=== PATIENT | male | born 1955 | race Caucasian/White ===

== ENCOUNTER 2016-07-27 13:43 | Emergency (ER) | payer OTHER ==
[2016-07-27] MEDS ORDERED: Sodium Chloride 0.9% 1,000 ML IV ONE ×2 (14:25→15:29)
[2016-07-27] MEDS ORDERED: Sodium Chloride 0.9% 2.5 ML Syringe FLUSH PRN (14:25)
[2016-07-27] MEDS ORDERED: Sodium Chloride 0.9% 10 ML Syringe FLUSH PRN (14:25)
[2016-07-27] MEDS ORDERED: Ketorolac 30 MG/ML SDV IVPUSH ONE (14:25)
--- NOTE | 2016-07-27 14:41 | EDM.PDOC ---
ED HPI GENERAL MEDICAL PROBLEM - General Chief Complaint: Gastrointestinal Problem Stated Complaint: BOWLOBSTRUCTION Time Seen by Provider: 07/27/16 14:08 - History of Present Illness INITIAL COMMENTS - FREE TEXT/NARRATIVE: HISTORY AND PHYSICAL: History of present illness: The patient is a 61-year-old male who follows at [facility] and has a history of asthma GERD and an appendectomy 2 years ago here ,who has since that time been admitted to a hospital in [place] in December of 2015 for small bowel obstruction. On that admission he spent 6 days in the hospital on bowel rest and it was determined that his bowel obstruction had a transition point in the right lower quadrant likely secondary to scar tissue where his appendectomy was. They did not have to operate aa he opened up with the bowel rest and some laxatives/enemas. The patient states he has been doing relatively well since that time and on Tuesday, 2 days ago he started having lower abdominal pain and cramping and he did not have a normal bowel movement on Tuesday or yesterday. Patient states he had only small flakes and a small amount of stool on those 2 days and he tried laxatives but did not get much output. He also states over the last 2 days he has not had much of an appetite and has not been eating and drinking his normal amount. He completely normally on Tuesday. He has had no documented fevers no chest pain or shortness of breath no urinary issues and no flank pain. The patient states the pain seems to be more localized in the right lower quadrant as it was on the last bowel obstruction but he overall feels bloated and gassy. He has been passing gas per rectum. The patient denies nausea and vomiting with these other symptoms above Review of systems: As per history of present illness and below otherwise all systems reviewed and negative. Past medical history: As per history of present illness and as reviewed below otherwise noncontributory. Surgical history: As per history of present illness and as reviewed below otherwise noncontributory. Social history: No reported history of drug or alcohol abuse. Family history: As per history of present illness and as reviewed below otherwise noncontributory. Physical exam: General: Well-developed slight man who is nontoxic and speaking clearly and easily in the ED. Vital signs of been reviewed by me. He moves in the ED without distress. HEENT: Atraumatic, normocephalic, negative for conjunctival pallor or scleral icterus, mucous membranes tacky, throat clear, neck supple, nontender, trachea midline. Lungs: Clear to auscultation, breath sounds equal bilaterally, chest nontender. Heart: S1S2, regular, negative for clicks, rubs, or JVD. Abdomen: Soft, nondistended, there is tympany on percussion more localized to the right side of the abdomen and there is no rebound or guarding on exam. He does have tenderness more on the right lower and right mid abdominal areas. Negative for masses or hepatosplenomegaly. Negative for costovertebral tenderness. Pelvis: Stable nontender. Genitourinary: Deferred. Rectal: Deferred. Extremities: Atraumatic, negative for cords or calf pain. Neurovascular unremarkable. Neuro: Awake, alert, oriented. Cranial nerves II through XII unremarkable. Cerebellum unremarkable. Motor and sensory unremarkable throughout. Exam nonfocal. Diagnostics: CBC CMP lactic acid UA CT scan of the abdomen and pelvis Therapeutics: IV fluids Toradol Flagyl Cipro Patient prefers to be given nonnarcotic medications 1605: I. discussed this case with Dr. Nash our hospitalist. As the patient is currently having no abdominal pain and feels much improved he feels that a trial of antibiotics for the focal colitis with Bentyl for home would be a good option if the patient is agreeable. I have discussed the CT scan and lab findings with the patient and offered him both observation admission or outpatient treatment and he would prefer outpatient treatment. I will give a dose of Flagyl and Cipro here and give him Flagyl and Cipro as well as Bentyl for home. I've advised him for follow up with his provider and reasons to return to the ER. Impression: Right lower abdominal pain, focal colitis stable Definitive disposition and diagnosis as appropriate pending reevaluation and review of above. Right Lower Abdominal Pain Score (Numeric/FACES): 8 - Related Data Allergies Allergy/AdvReac Type Severity Reaction Status Date / Time No Known Allergies Allergy Verified 07/27/16 14:06 Home Meds: Home Meds Albuterol Sulfate [Albuterol Sulfate HFA] 1 - 2 inh INH DAILY PRN 07/28/14 [ History] Fluticasone/Vilanterol [Breo Ellipta 100-25 MCG Inhalation Kit] 1 each IH DAILY 12/26/15 [History] Brimonidine Tartrate [Brimonidine Tartrate 0.2% Ophth Soln] 2 drop EYEBOTH BID 07/27/16 [History] Latanoprost 1 drop EYEBOTH DAILY 07/27/16 [History] Past Medical History - Past Health History Medical/Surgical History: Denies Medical/Surgical History HEENT History: Reports: Glaucoma Other HEENT History: hx: fractured cheek bone on Right as young boy Other Cardiovascular History: History of Innocent heart murmur as child, they report they do not hear it-patient states that this has resolved. Respiratory History: Reports: Asthma, COPD Other Respiratory History: 44 yr history of smoking, trying to QUIT, current use 1/2 pack/day Gastrointestinal History: Reports: Bowel Obstruction, GERD Other Gastrointestinal History: Take TUMS daily, when does not cure it add OTC Zantac and then 3rd level is OTC Prilosec Genitourinary History: Reports: None Musculoskeletal History: Reports: Back Pain, Chronic Other Musculoskeletal History: hx: several fractures just set and healed, but significant to Left wrist and arm ORIF with hardware remaining, hx: fractures to Left foot, chronic low back pain "several ruptured discs" Neurological History: Reports: None Other Endocrine/Metabolic History: Have high metabolism hard to keep weight on, eat carbs and protein Other Oncologic History: Pre-cancers some basal cell Other Dermatologic History: Fair complected, "have had pre-cancerous things removed couple basal cell, been in sun alot through the years have always worked outside" - Infectious Disease History Infectious Disease History: Reports: Chicken Pox, Measles, Mumps - Past Surgical History GI Surgical History: Reports: Appendectomy Social & Family History - Family History Family Medical History: Noncontributory - Tobacco Use Smoking Status *Q: Current Every Day Smoker Years of Tobacco use: 46 Packs/Tins Daily: 0.7 Used Tobacco, but Quit: No Second Hand Smoke Exposure: Yes - Caffeine Use Caffeine Use: Reports: None - Alcohol Use Days Per Week of Alcohol Use: 0 Number of Drinks Per Day: 1 Total Drinks Per Week: 0 - Recreational Drug Use Recreational Drug Use: No Drug Use in Last 12 Months: No ED ROS GENERAL - Review of Systems Review Of Systems: ROS reveals no pertinent complaints other than HPI. ED EXAM, GENERAL - Physical Exam Exam: See Below (See dictation) Course - Vital Signs Last Recorded V/S: Last Vital Signs Temp 36.6 C 07/27/16 14:03 Pulse 92 07/27/16 14:03 Resp 16 07/27/16 14:03 BP 101/73 07/27/16 14:03 Pulse Ox 97 07/27/16 14:03 - Orders/Labs/Meds Orders: Active Orders 24 hr Category Date Time Status Ciprofloxacin [Ciprofloxacin HCl] Med 07/27/16 16:23 Once 500 mg PO ONETIME ONE Sodium Chloride 0.9% [Normal Saline] 1,000 ml Med 07/27/16 15:29 Active IV STAT Sodium Chloride 0.9% [Saline Flush] Med 07/27/16 14:25 Active 10 ml FLUSH ASDIRECTED PRN Sodium Chloride 0.9% [Saline Flush] Med 07/27/16 14:25 Active 2.5 ml FLUSH ASDIRECTED PRN metroNIDAZOLE/Normal Saline [Flagyl 500 MG in NS 100 ML Med 07/27/16 16:23 Ordered ] 500 mg Premix Bag 1 bag IV ONETIME Saline Lock Insert [OM.PC] Stat Oth 07/27/16 14:24 Ordered Medication Orders Sodium Chloride (Normal Saline) 1,000 mls @ 999 mls/hr IV STAT ONE Stop: 07/27/16 16:29 Last Admin: 07/27/16 15:43 Dose: 999 mls/hr Sodium Chloride (Saline Flush) 10 ml FLUSH ASDIRECTED PRN PRN Reason: Keep Vein Open Last Admin: 07/27/16 14:35 Dose: 10 ml Sodium Chloride (Saline Flush) 2.5 ml FLUSH ASDIRECTED PRN PRN Reason: Keep Vein Open Last Admin: 07/27/16 14:35 Dose: 2.5 ml Labs: Laboratory Tests 07/27/16 07/27/16 07/27/16 Range/Units 14:29 14:29 14:29 WBC 13.59 H (4.0-11.0) K/uL RBC 4.60 (4.50-5.90) M/uL Hgb 15.7 (13.0-17.0) g/dL Hct 45.9 (38.0-50.0) % MCV 99.8 H (80.0-98.0) fL MCH 34.1 H (27.0-32.0) pg MCHC 34.2 (31.0-37.0) g/dL RDW Std Deviation 50.0 (28.0-62.0) fl RDW Coeff of Alyssa 14 (11.0-15.0) % Plt Count 171 (150-400) K/uL MPV 9.60 (7.40-12.00) fL Neut % (Auto) 76.7 (48.0-80.0) % Lymph % (Auto) 12.7 L (16.0-40.0) % [place] % (Auto) 10.2 (0.0-15.0) % Eos % (Auto) 0.3 (0.0-7.0) % Baso % (Auto) 0.1 (0.0-1.5) % Neut # (Auto) 10.4 H (1.4-5.7) K/uL Lymph # (Auto) 1.7 (0.6-2.4) K/uL [place] # (Auto) 1.4 H (0.0-0.8) K/uL Eos # (Auto) 0.0 (0.0-0.7) K/uL Baso # (Auto) 0.0 (0.0-0.1) K/uL Nucleated RBC % 0.0 /100WBC Nucleated RBCs # 0 K/uL Lactate 0.9 (0.20-2.00) mmol/L Sodium 137 (136-146) mmol/L Potassium 4.0 (3.5-5.1) mmol/L Chloride 103 (98-110) mmol/L Carbon Dioxide 20 L (21-31) mmol/L BUN 19 (6.0-23.0) mg/dL Creatinine 0.9 (0.6-1.5) mg/dL Est Cr Clr Drug Dosing 70.75 mL/min Estimated GFR (MDRD) > 60.0 ml/min Glucose 68 (60-110) mg/dL Calcium 9.5 (8.8-10.8) mg/dL Total Bilirubin 0.9 (0.1-1.5) mg/dL AST 12 (5-40) IU/L ALT 11 (8-54) IU/L Alkaline Phosphatase 80 (40-150) Total Protein 7.3 (6.0-8.0) g/dL Albumin 4.4 (3.5-5.0) g/dL Globulin 2.9 (2.0-3.5) g/dL Albumin/Globulin Ratio 1.5 (1.3-2.8) Urine Color Urine Appearance Urine pH (5.0-8.0) Ur Specific [place] (1.001-1.035) Urine Protein (NEGATIVE) mg/dL Urine Glucose (UA) (NEGATIVE) mg/dL Urine Ketones (NEGATIVE) mg/dL Urine Occult Blood (NEGATIVE) Urine Nitrite (NEGATIVE) Urine Bilirubin (NEGATIVE) Urine Ictotest Urine Urobilinogen (<2.0) EU/dL Ur Leukocyte Esterase (NEGATIVE) Urine RBC (0-2/HPF) Urine WBC (0-5/HPF) Ur Epithelial Cells (NONE-FEW) Urine Bacteria (NEGATIVE) Urine Mucus (NONE-MOD) 07/27/16 Range/Units 15:00 WBC (4.0-11.0) K/uL RBC (4.50-5.90) M/uL Hgb (13.0-17.0) g/dL Hct (38.0-50.0) % MCV (80.0-98.0) fL MCH (27.0-32.0) pg MCHC (31.0-37.0) g/dL RDW Std Deviation (28.0-62.0) fl RDW Coeff of Alyssa (11.0-15.0) % Plt Count (150-400) K/uL MPV (7.40-12.00) fL Neut % (Auto) (48.0-80.0) % Lymph % (Auto) (16.0-40.0) % [place] % (Auto) (0.0-15.0) % Eos % (Auto) (0.0-7.0) % Baso % (Auto) (0.0-1.5) % Neut # (Auto) (1.4-5.7) K/uL Lymph # (Auto) (0.6-2.4) K/uL [place] # (Auto) (0.0-0.8) K/uL Eos # (Auto) (0.0-0.7) K/uL Baso # (Auto) (0.0-0.1) K/uL Nucleated RBC % /100WBC Nucleated RBCs # K/uL Lactate (0.20-2.00) mmol/L Sodium (136-146) mmol/L Potassium (3.5-5.1) mmol/L Chloride (98-110) mmol/L Carbon Dioxide (21-31) mmol/L BUN (6.0-23.0) mg/dL Creatinine (0.6-1.5) mg/dL Est Cr Clr Drug Dosing mL/min Estimated GFR (MDRD) ml/min Glucose (60-110) mg/dL Calcium (8.8-10.8) mg/dL Total Bilirubin (0.1-1.5) mg/dL AST (5-40) IU/L ALT (8-54) IU/L Alkaline Phosphatase (40-150) Total Protein (6.0-8.0) g/dL Albumin (3.5-5.0) g/dL Globulin (2.0-3.5) g/dL Albumin/Globulin Ratio (1.3-2.8) Urine Color YELLOW Urine Appearance CLEAR Urine pH 5.5 (5.0-8.0) Ur Specific [place] >= 1.030 (1.001-1.035) Urine Protein TRACE (NEGATIVE) mg/dL Urine Glucose (UA) NEGATIVE (NEGATIVE) mg/dL Urine Ketones >=80 (NEGATIVE) mg/dL Urine Occult Blood TRACE-INTACT (NEGATIVE) Urine Nitrite NEGATIVE (NEGATIVE) Urine Bilirubin MODERATE H (NEGATIVE) Urine Ictotest NEGATIVE Urine Urobilinogen 1.0 (<2.0) EU/dL Ur Leukocyte Esterase NEGATIVE (NEGATIVE) Urine RBC 1-2 (0-2/HPF) Urine WBC 0-2 (0-5/HPF) Ur Epithelial Cells RARE (NONE-FEW) Urine Bacteria FEW (NEGATIVE) Urine Mucus MANY (NONE-MOD) Meds: Medications Generic Name Dose Route Start Last Admin Trade Name Freq PRN Reason Stop Dose Admin Sodium Chloride 1,000 mls @ 999 mls/hr 07/27/16 15:29 07/27/16 15:43 Normal Saline IV 07/27/16 16:29 999 mls/hr STAT ONE Administration Sodium Chloride 10 ml 07/27/16 14:25 07/27/16 14:35 Saline Flush FLUSH 10 ml ASDIRECTED PRN Administration Keep Vein Open Sodium Chloride 2.5 ml 07/27/16 14:25 07/27/16 14:35 Saline Flush FLUSH 2.5 ml ASDIRECTED PRN Administration Keep Vein Open Discontinued Medications Generic Name Dose Route Start Last Admin Trade Name Do PRN Reason Stop Dose Admin Sodium Chloride 1,000 mls @ 999 mls/hr 07/27/16 14:25 07/27/16 14:35 Normal Saline IV 07/27/16 15:25 999 mls/hr STAT ONE Administration Iopamidol 100 ml 07/27/16 15:22 07/27/16 15:23 Isovue Multipack-370 (76%) IVPUSH 07/27/16 15:23 100 ml ONETIME STA Administration Ketorolac Tromethamine 30 mg 07/27/16 14:25 07/27/16 14:58 Toradol IVPUSH 07/27/16 14:26 30 mg ONETIME ONE Administration Departure - Departure Time of Disposition: 16:26 Disposition: Home, Self-Care 01 Condition: good Clinical Impression: Colitis Abdominal pain Qualifiers: Abdominal location: right lower quadrant Qualified Code(s): R10.31 - Right lower quadrant pain - Discharge Information Forms: ED Department Discharge Additional Instructions: The following information is given to patients seen in the emergency department who are being discharged to home. This information is to outline your options for follow-up care. We provide all patients seen in our emergency department with a follow-up referral. The need for follow-up, as well as the timing and circumstances, are variable depending upon the specifics of your emergency department visit. If you don't have a primary care physician on staff, we will provide you with a referral. We always advise you to contact your personal physician following an emergency department visit to inform them of the circumstance of the visit and for follow-up with them and/or the need for any referrals to a consulting specialist. The emergency department will also refer you to a specialist when appropriate. This referral assures that you have the opportunity for followup care with a specialist. All of these measure are taken in an effort to provide you with optimal care, which includes your followup. Under all circumstances we always encourage you to contact your private physician who remains a resource for coordinating your care. When calling for followup care, please make the office aware that this follow-up is from your recent emergency room visit. If for any reason you are refused follow-up, please contact the [facility] emergency department at and ask to speak to the emergency department charge nurse. [facility] Primary care- Internal Medicine and Family [facility] [address] [place] [address] [place] [address] Please follow up with her provider at [facility] or one of our providers in one to 2 days. Take all medications as prescribed and push hydration and bland diet. Return to ER as needed and as discussed - My Orders Last 24 Hours: My Active Orders 07/27/16 14:24 Saline Lock Insert [OM.PC] Stat 07/27/16 14:25 Sodium Chloride 0.9% [Saline Flush] 10 ml FLUSH ASDIRECTED PRN Sodium Chloride 0.9% [Saline Flush] 2.5 ml FLUSH ASDIRECTED PRN 07/27/16 15:29 Sodium Chloride 0.9% [Normal Saline] 1,000 ml IV STAT 07/27/16 16:23 Ciprofloxacin [Ciprofloxacin HCl] 500 mg PO ONETIME ONE metroNIDAZOLE/Normal Saline [Flagyl 500 MG in NS 100 ML] 500 mg Premix Bag 1 bag IV ONETIME - Assessment/Plan Last 24 Hours: My Active Orders 07/27/16 14:24 Saline Lock Insert [OM.PC] Stat 07/27/16 14:25 Sodium Chloride 0.9% [Saline Flush] 10 ml FLUSH ASDIRECTED PRN Sodium Chloride 0.9% [Saline Flush] 2.5 ml FLUSH ASDIRECTED PRN 07/27/16 15:29 Sodium Chloride 0.9% [Normal Saline] 1,000 ml IV STAT 07/27/16 16:23 Ciprofloxacin [Ciprofloxacin HCl] 500 mg PO ONETIME ONE metroNIDAZOLE/Normal Saline [Flagyl 500 MG in NS 100 ML] 500 mg Premix Bag 1 bag IV ONETIME
[2016-07-27 14:58] LABS: CHLORIDE,CL 103 mmol/L (98-110); SODIUM,NA 137 mmol/L (136-146)
[2016-07-27] MEDS ORDERED: Iopamidol 755 MG/ML 500 ML Multipack Bottle IVPUSH STA (15:22)
--- NOTE | 2016-07-27 15:46 | CT ---
CT of the abdomen and pelvis with contrast. HISTORY: Pain TECHNIQUE: Axial CT images were obtained of the abdomen and pelvis following administration of 100 m L of Isovue-370 in the left antecubital fossa without complication. Coronal and sagittal reconstruct ions obtained. FINDINGS: The lung bases are clear without focal consolidation. Emphysematous changes are noted. The liver, spleen, adrenal glands, and pancreas appear normal. The gallbladder is normal. There is n o bulky retroperitoneal lymphadenopathy or abdominal ascites. The kidneys enhance and function symme trically without evidence of obstructive uropathy. The large and small bowel are normal in caliber without evidence of obstruction. There is moderate p ericecal inflammation of uncertain etiology. The patient has a history of appendectomy and the appen lan is not identified. There is a small amount of free pelvic fluid also noted. The urinary bladder appears normal. The prostate is mildly prominent. No bulky pelvic lymphadenopathy. No suspicious osseous abnormalities identified. IMPRESSION: 1. Moderate pericecal inflammation and fluid of uncertain etiology. This could represent focal colit is. The patient is status post appendectomy by history. 2. Pulmonary emphysema.
[2016-07-27] MEDS ORDERED: metroNIDAZOLE/Normal Saline 500 MG in Premix Bag 1 BAG IV ONE (16:23)
[2016-07-27] MEDS ORDERED: Ciprofloxacin 500 MG Tab PO ONE (16:23)
[2016-07-27 17:30] VITALS: BP 98/66
== END 2016-07-27 17:48 | disposition home or self-care (01) ==
LOC: MW.ED 13:43
DX: K52.9 Noninfective gastroenteritis and colitis, unspecified (principal); J45.909 Unspecified asthma, uncomplicated; J44.9 Chronic obstructive pulmonary disease, unspecified; K21.9 Gastro-esophageal reflux disease without esophagitis; Z98.890 Other specified postprocedural states; F17.210 Nicotine dependence, cigarettes, uncomplicated; Z79.899 Other long term (current) drug therapy; Z90.49 Acquired absence of other specified parts of digestive tract
CPT/HCPCS: 36415; 74177; 80053; 81001; 83605; 85025; 96361; 96365; 96375; 99284; A9270; J1885; J7040; Q9967

== ENCOUNTER 2017-01-20 11:06 | Day surgery (SDC) | payer OTHER ==
[~2017-01-20 11:06] MED LIST: Betamethasone Acetate/Betamethasone Sod Phosphate 30 MG/5 ML MDV ONE; Iopamidol 408 MG/ML 50 ML SDV ONE; Lidocaine 2% 5 ML SDV ONE; Ropivacaine 0.5% 5 MG/ML 30 ML SDV ONE
--- NOTE | 2017-01-20 17:35 | OR ---
SURGEON: Thania Shepard D.O. DATE OF PROCEDURE: 01/20/2017 OR STAFF PRESENT: 1. Cy Casarez RN. 2. Cy Frazier RN. TRANSMISSION SYSTEM OPERATOR: RT Adryan. WOUND CLASSIFICATION: I. PREOPERATIVE DIAGNOSES: 1. Lumbar degenerative disk disease. 2. Lumbar radiculopathy. POSTOPERATIVE DIAGNOSES: 1. Lumbar degenerative disk disease. 2. Lumbar radiculopathy. PROCEDURES PERFORMED: 1. Interlaminar epidural steroid injection at L4-5. 2. Fluoroscopic guidance for needle placement. 3. Local with no sedation. SCREENING QUESTIONS: The patient answered "no" to all of the following questions: 1. Are you allergic to latex? 2. Do you have a bleeding disorder? 3. Do you have any current local or systemic infections? 4. Are you taking any anti-inflammatories or blood thinners? 5. Do you have any joint replacements, heart valve replacements, or a pacemaker? DESCRIPTION OF PROCEDURE: The patient had the procedure thoroughly explained including all possible risks, benefits and alternatives. Consent was signed in my clinic indicating understanding and willingness to proceed. The patient presented to [facility] and was escorted to the dressing room to disrobe and change into a hospital gown. Preoperative vital signs were taken and stable. The patient reported that Valium was taken prior to the procedure. The patient was brought back to the procedure room and placed in the prone position on the procedure room table. A pillow was placed under the hips in order to flatten the lumbar lordosis. The back was prepped with ChloraPrep and sterilely draped. All personnel in the operating room were dressed in appropriate attire including surgical scrubs, head and shoe covers. This was to ensure sterility while in the treatment room. During the time fluoroscopy was in use, all personnel in the operating room wore lead andrews with thyroid collars. Sterile technique was used throughout the procedure. The patient was awake and conversant throughout the procedure. There was no evidence of infection at the site of needle insertion. Skeletal landmarks were identified under fluoroscopy for the lumbar epidural. Skin was anesthetized with 2% lidocaine with a sterile 27-gauge 1.5 inch needle. Then a 20-gauge Tuohy epidural needle was placed in the epidural space with loss of resistance technique under fluoroscopic guidance. No heme, cerebrospinal fluid, or paresthesias were noted. Isovue-200 contrast dye was injected in 0.2 cubic centimeter increments and seen to outline the epidural space in both AP and lateral views. There was no intravascular flow pattern observed under live fluoroscopy. Then 12 milligrams of Celestone was slowly injected after negative aspiration. The patient tolerated the procedure well. Vital signs were stable during and after the procedure. The staff escorted the patient to the recovery area and the patient was released in stable condition after a brief stay in the recovery room monitored by the nurse. The patient was given both oral and written discharge and follow up instructions with recommendation to follow up given for 2-3 weeks. The patient voiced understanding including understanding of those signs and symptoms that would require emergency care. The patient knows how to contact the office if there are any additional problems or questions in the meantime. PREOPERATIVE PAIN: 4/10+. POSTOPERATIVE PAIN: 0/10. FOLLOWUP: Follow up in the Pain Clinic in 3 weeks. CARMEN / TIMOTHY /[id number]
== END 2017-01-20 12:50 | disposition home or self-care (01) ==
LOC: MW.SDS 11:06
PROVIDERS: ATTEND Anesthesiology
DX: M51.16 Intervertebral disc disorders with radiculopathy, lumbar region (principal); J44.9 Chronic obstructive pulmonary disease, unspecified; K21.9 Gastro-esophageal reflux disease without esophagitis; H40.9 Unspecified glaucoma; F17.200 Nicotine dependence, unspecified, uncomplicated; Z79.899 Other long term (current) drug therapy; Z90.49 Acquired absence of other specified parts of digestive tract; Z98.890 Other specified postprocedural states
CPT/HCPCS: 62323; J0702; J2795; Q9966